=== PATIENT | male | born 1965 | race Caucasian/White ===

== ENCOUNTER 2016-06-12 18:47 | Emergency (ER) | payer OTHER ==
[~2016-06-12] VITALS: Ht 175.3 cm; Wt 89.4 kg
[~2016-06-12 18:47] MED LIST: ACET-1256 PO
[2016-06-12 18:52] VITALS: TEMP 37; Ht 175.3 cm; Wt 89.4 kg
[2016-06-12] MEDS ORDERED: NITROGLYCERIN 0.4 MG SL PER TAB CHARGE SL STA (19:58)
[2016-06-12] MEDS ORDERED: ASPIRIN 324 MG CHEW PO STA (19:58)
[2016-06-12 20:07] LABS: BASO % 0.3 %; BASO ABS # 0.03 K/uL (0-0.2); COMPLETE YES; HEMATOCRIT 43.4 % (42-52); IG% 0.4 %; MEAN CELL VOLUME 96.7 fL (80-100); MEAN CORPUSCULAR HEMOGLOBIN 33.9 pg (25-34); MEAN PLATELET VOLUME 9.6 fL (7.4-10.4); MONO % 7.4 %; NEUT % 67.9 %; PLATELET COUNT 239 K/uL (130-400); RED BLOOD COUNT 4.49 M/uL (4.7-6.1); WHITE BLOOD COUNT 10.44 K/uL (4.8-10.8)
[2016-06-12] MEDS: NITROGLYCERIN 0.4 MG SL PER TAB CHARGE SL PRN ×2 (20:13→20:18)
--- NOTE | 2016-06-12 20:13 | DIAGNOSTIC IMAGING REPORT ---
CHEST ONE VIEW PORTABLE CLINICAL HISTORY: Chest Pain dyspnea COMPARISON STUDY: 09/22/2015 FINDINGS: The bones soft tissues and hemidiaphragms are normal. The cardiomediastinal silhouette is normal. The lungs are clear. The pulmonary vasculature is normal. IMPRESSION: Negative chest. Electronically signed by: Brandon Powers M.D. 06/12/2016 8:11 PM Dictated Date/Time: 06/12/2016 8:11 PM
[2016-06-12] MEDS ORDERED: FENTANYL CITRATE INJ 50 MCG/1 ML 2 ML VIAL IV STA (20:24)
[2016-06-12 20:35] LABS: BLOOD UREA NITROGEN 13 mg/dl (7-18); BUN/CREATININE RATIO 14.3 (10-20); CALCIUM 8.6 mg/dl (8.5-10.1); CARBON DIOXIDE 25 mmol/L (21-32); CHLORIDE 105 mmol/L (98-107); CKMB/CK RATIO 2.5 (0-3.0); CREATININE 0.94 mg/dl (0.60-1.40); GLUCOSE 97 mg/dl (70-99); POTASSIUM 3.8 mmol/L (3.5-5.1); SODIUM 139 mmol/L (136-145)
[2016-06-12] MEDS ORDERED: AMLO5TAB2 PO (22:04)
--- NOTE | 2016-06-12 22:05 | EMERGENCY ROOM VISIT NOTE ---
History Report prepared by Юлия: Renay Reed Under the Supervision of: Dr. Thang Rodriguez M.D. First contact with patient: 19:52 Chief Complaint: CARDIAC ASSESSMENT Stated Complaint: HEART STRANGE PAIN Nursing Triage Summary: pt co "weird feeling" in chest x2 hours. denies n/v/sob/dizziness. states he was driving when it started. states sometimes pain "goes up into my neck." states he has a hx of htn and was on medication, but ran out of his rx and did not refill it. pt alert and oriented x4. breathing WNL. History of Present Illness The patient is a 50 year old male who presents to the Emergency Room with complaints of persistent chest pain which started 3-4 hours ago. His states that a sharp pain sometimes radiates up to his neck. He has felt pain in his chest before, but states that it was present on both sides and due to pneumonia. He reports no history of heart problems or blood clots. 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 He reports that prolonged walking makes him short of breath and makes his legs ache. He denies any SOB otherwise. He attributes this to lack of exercise. He denies being in increased stress. He has not taken aspirin or any other medications for the pain. Source of History: patient Onset: 3-4 hours ago Position: chest Quality: other (pain) Timing: other (persistent) Associated Symptoms: + neck pain, No SOB Review of Systems See HPI for pertinent positives & negatives. A total of 10 systems reviewed and were otherwise negative. Past Medical & Surgical Medical Problems: (1) PNA (pneumonia) Family History FH: emphysema FH: heart disease Social History Smoking Status: Current Every Day Smoker Marital Status: single Occupation Status: employed Current/Historical Medications Scheduled Acetaminophen (Tylenol), 1,500 MG PO DIRECTED Amlodipine Besylate (Norvasc), 1-2 TAB PO DAILY Allergies Coded Allergies: No Known Allergies (Unverified , 09/22/15) Physical Exam Vital Signs Date Time Temp Pulse Resp B/P Pulse Ox O2 Delivery O2 Flow Rate FiO2 06/12/16 22:23 88 18 176/115 94 06/12/16 20:24 103 18 138/93 92 Room Air 06/12/16 20:19 105 18 142/91 94 Room Air 06/12/16 20:13 101 18 143/94 94 Room Air 06/12/16 20:08 91 18 174/107 96 Room Air 06/12/16 19:46 98 06/12/16 18:52 37.0 96 20 199/118 98 Room Air 06/12/16 18:51 Room Air Physical Exam GENERAL: Patient is well appearing and in minimal distress. HEENT: No acute trauma, normocephalic atraumatic, mucous membranes moist, no nasal congestion, no scleral icterus. NECK: No stridor, no adenopathy, no meningismus, trachea is midline. LUNGS: No dyspnea. Clear to auscultation and equal bilaterally. No wheeze, no rhonchi. HEART: Regular rate and rhythm. No murmurs, rubs, gallops appreciated. ABDOMEN: Soft, nontender, bowel sounds positive, no masses appreciated, no peritonitis. BACK: No midline tenderness, no CVA tenderness EXTREMITIES: Normal motion all extremities, no cyanosis, no edema. NEUROLOGIC: Alert and oriented, no acute motor or sensory deficits, no focal weakness, cranial nerves grossly intact. SKIN: No rash, no jaundice, no diaphoresis. Medical Decision & Procedures ER Provider Diagnostic Interpretation: X ray results are stated below per my interpretation and the radiologist's interpretation. CHEST ONE VIEW PORTABLE CLINICAL HISTORY: Chest Pain dyspnea COMPARISON STUDY: 09/22/2015 FINDINGS: The bones soft tissues and hemidiaphragms are normal. The cardiomediastinal silhouette is normal. The lungs are clear. The pulmonary vasculature is normal. IMPRESSION: Negative chest. Electronically signed by: Brandon Powers M.D. 06/12/2016 8:11 PM Dictated Date/Time: 06/12/2016 8:11 PM Laboratory Results 06/12/16 19:50 Red Blood Count 4.49, Mean Corpuscular Volume 96.7, Mean Corpuscular Hemoglobin 33.9, Mean Corpuscular Hemoglobin Concent 35.0, Mean Platelet Volume 9.6, Neutrophils (%) (Auto) 67.9, Lymphocytes (%) (Auto) 23.0, Monocytes (%) (Auto) 7.4, Eosinophils (%) (Auto) 1.0, Basophils (%) (Auto) 0.3, Neutrophils # (Auto) 7.10, Lymphocytes # (Auto) 2.40, Monocytes # (Auto) 0.77, Eosinophils # (Auto) 0.10, Basophils # (Auto) 0.03 06/12/16 19:50 Test 06/12/16 19:50 06/12/16 21:26 White Blood Count 10.44 K/uL (4.8-10.8) Red Blood Count 4.49 M/uL (4.7-6.1) Hemoglobin 15.2 g/dL (14.0-18.0) Hematocrit 43.4 % (42-52) Mean Corpuscular Volume 96.7 fL (80-100) Mean Corpuscular Hemoglobin 33.9 pg (25-34) Mean Corpuscular Hemoglobin Concent 35.0 g/dl (32-36) Platelet Count 239 K/uL (130-400) Mean Platelet Volume 9.6 fL (7.4-10.4) Neutrophils (%) (Auto) 67.9 % Lymphocytes (%) (Auto) 23.0 % Monocytes (%) (Auto) 7.4 % Eosinophils (%) (Auto) 1.0 % Basophils (%) (Auto) 0.3 % Neutrophils # (Auto) 7.10 K/uL (1.4-6.5) Lymphocytes # (Auto) 2.40 K/uL (1.2-3.4) Monocytes # (Auto) 0.77 K/uL (0.11-0.59) Eosinophils # (Auto) 0.10 K/uL (0-0.5) Basophils # (Auto) 0.03 K/uL (0-0.2) RDW Standard Deviation 47.9 fL (36.4-46.3) RDW Coefficient of Variation 13.4 % (11.5-14.5) Immature Granulocyte % (Auto) 0.4 % Immature Granulocyte # (Auto) 0.04 K/uL (0.00-0.02) D-Dimer 300 ug/L FEU (0-500) Anion Gap 9.0 mmol/L (3-11) Est Creatinine Clear Calc Drug Dose 104.0 ml/min Estimated GFR () 109.1 Estimated GFR (Non- 94.2 BUN/Creatinine Ratio 14.3 (10-20) Calcium Level 8.6 mg/dl (8.5-10.1) Total Creatine Kinase 185 U/L (39-308) Creatine Kinase MB 4.6 ng/ml (0.5-3.6) Creatine Kinase MB Ratio 2.5 (0-3.0) Troponin I < 0.015 ng/ml (0-0.045) Chemistry Specimen Hemolysis Bedside Troponin I 0.000 ng/ml (0-0.045) Laboratory results as reviewed by me. Medications Administered Medications (Trade) Dose Ordered Sig/Rod Route Start Time Stop Time Status Last Admin Dose Admin Nitroglycerin (Nitrostat Tab) 0.4 mg Q5M PRN SL 06/12/16 20:00 07/12/16 19:59 06/12/16 20:18 0.4 MG Aspirin (Aspirin Chew) 324 mg NOW STAT PO 06/12/16 19:58 06/12/16 20:00 DC 06/12/16 20:07 324 MG Nitroglycerin (Nitrostat Tab) 0.4 mg NOW STAT SL 06/12/16 19:58 06/12/16 20:00 DC 06/12/16 20:08 0.4 MG Amlodipine Besylate (Norvasc Tab) 5 mg NOW ONCE PO 06/12/16 22:15 06/12/16 22:16 DC 06/12/16 22:19 5 MG ECG Indication: chest pain Rate (beats per minute): 96 Rhythm: normal sinus Findings: no acute ischemic change, no ectopy ED Course 1954: The patient was evaluated in room C3. A complete history and physical exam was performed. 1957: Nitroglycerin 0.4 mg SL, Aspirin 324 mg PO. 1999: Nitroglycerin 0.4 mg SL. 2023: I reevaluated the patient. He received 3 doses of Nitro which has almost completely resolved his pain. 2103: I reevaluated the patient. He no longer has chest pain. He feels better. He declined the fentanyl. He declined to be further evaluated. He is willing to remain in the ED until his repeat cardiac enzymes result. 2202: I reevaluated the patient. He is feeling better. I instructed him to follow with his PCP on Tuesday. I offered to have case management set up an appointment, but he declined. I discussed results and discharge instructions: he verbalized understanding and agreement. The patient is ready for discharge. 2214: Norvasc Tab 5 mg PO. Medical Decision Differential: Cardiac Ischemia (STEMI, NSTEMI, Unstable Angina, etc), Aortic Dissection, Arrhythmia, Pulmonary Embolism, Pneumonia, Pneumothorax, MSK, Infectious, Pericarditis/Myocarditis, Esophageal Rupture, Gastrointestinal, amongst other pathologies entertained. 50 yr old male arrives with left chest pain and hypertension. Resolved with [facility]. Feeling well and no distress Trop x 2 negative and EKG without acute ischemia. Given multiple cardiac risk factors and symptoms I felt that bringing in to hospital necessary however patient has refused. Understands he could have NV at home. He is not on any meds for HTN thus I will start Norvasc. Stressed importance of PCP follow up and that at any time RTED if he wishes further evaluation. Stable at time of discharge to home with mild elevated BP without symptoms. Impression Primary Impression: Left sided chest pain Additional Impression: Hypertension Scribe Attestation The scribe's documentation has been prepared under my direction and personally reviewed by me in its entirety. I confirm that the note above accurately reflects all work, treatment, procedures, and medical decision making performed by me. Departure Information Dispostion Home / Self-Care Prescriptions Amlodipine Besylate (NORVASC) 5 Mg Tab 1-2 TAB PO DAILY for 30 Days, #45 TAB 5 Refills Prov: Thang Rodriguez M.D. 06/12/16 Referrals Pamela Dash M.D. (PCP) Patient Instructions Chest Pain - [facility], My [facility] Health Problem Qualifiers Additional Impression: Hypertension Hypertension type: essential hypertension Qualified Codes: I10 - Essential ( primary) hypertension
[2016-06-12] MEDS ORDERED: AMLODIPINE BESYLATE 5 MG TAB PO ONE (22:15)
[2016-06-12 22:23] VITALS: BP 176/115; PULSE 88; O2SAT 94
== END 2016-06-12 22:23 | disposition home or self-care (01) ==
LOC: C.EDB 18:48 → C.EDC 22:23
DX: R07.89 Other chest pain (principal); I10 Essential (primary) hypertension; F17.210 Nicotine dependence, cigarettes, uncomplicated